=== PATIENT | female | born 1995 | race Two or more races ===

== ENCOUNTER 2016-03-16 10:00 | Observation (INO) | payer MEDICAID | END 2016-03-16 12:10 | disposition home or self-care (01) | DRG 566 | LOC: LDRP 10:00 | PROVIDERS: ADMIT Specialist; ATTEND Specialist | DX: O36.8120 Decreased fetal movements, second trimester, not applicable or unspecified (principal); Z3A.26 26 weeks gestation of pregnancy | CPT/HCPCS: 76818; G0378; 59025; 81002 ==

== ENCOUNTER 2016-04-21 10:00 | Observation (INO) | payer MEDICAID ==
[~2016-04-21] VITALS: Ht 165.1 cm; Wt 93.0 kg
[2016-04-21] MEDS ORDERED: LACTATED RINGER'S 1,000 ML IV ONE (11:11)
[2016-04-21] MEDS ORDERED: LACTATED RINGER'S 1,000 ML IV SCH (11:11)
[2016-04-21] MEDS ORDERED: TERBUTALINE SULFATE 1 MG/ML 1ML VIAL SC ONE (11:15)
[2016-04-21] MEDS ORDERED: PREN-153 OR (13:43)
== END 2016-04-21 12:55 | disposition home or self-care (01) | DRG 566 ==
LOC: LDRP 10:00
PROVIDERS: ADMIT Obstetrics & Gynecology; ATTEND Obstetrics & Gynecology
DX: O99.613 Diseases of the digestive system complicating pregnancy, third trimester (principal); K52.9 Noninfective gastroenteritis and colitis, unspecified; Z3A.31 31 weeks gestation of pregnancy
CPT/HCPCS: 96360; 96361; 96372; G0378; 59025; 81002

== ENCOUNTER 2016-04-27 12:15 | Observation (INO) | payer MEDICAID ==
[~2016-04-27 12:15] MED LIST: PREN-153 OR
== END 2016-04-27 13:07 | disposition home or self-care (01) | DRG 566 ==
LOC: LDRP 12:15
PROVIDERS: ADMIT Specialist; ATTEND Specialist
DX: O26.893 Other specified pregnancy related conditions, third trimester (principal); R19.7 Diarrhea, unspecified; Z3A.32 32 weeks gestation of pregnancy
CPT/HCPCS: 59025; 81002; G0378

== ENCOUNTER 2016-05-01 11:20 | Emergency (ER) | payer MEDICAID ==
[~2016-05-01] VITALS: Ht 165.1 cm; Wt 92.5 kg
[2016-05-01 11:55] LABS: Basophils # (auto) 0 uL; Basophils % (auto) 0.5 % (0.0-2.0); DEFINITIVE VIEW TRANSMISSION; Eosinophils # (auto) 0 uL; Eosinophils % (auto) 0.3 % (0.0-7.0); Hematocrit 32.5 % (36.0-46.0); Hemoglobin 10.9 g/dL (12.2-16.2); Lymphocytes # (auto) 1.3 uL; Lymphocytes % (auto) 17.4 % (10.0-50.0); Mean Corpuscular Hemoglobin 26.9 pg (28.0-32.0); Mean Corpuscular Hgb Conc. 33.6 g/dL (32.0-36.0); Mean Corpuscular Volume 80.2 fL (80.0-100.0); Mean Platelet Volume 9.5 fL (7.4-10.4); Monocytes # (auto) 0.5 uL; Neutrophils # (auto) 5.7 uL; Neutrophils % (auto) 74.8 % (37.0-80.0); Platelet Count (auto) 297 10^3/uL (140-450); Red Cell Distribution Width 13.3 % (11.6-16.0); White Blood Cell 7.6 10^3/uL (4.4-10.8)
[2016-05-01 12:11] LABS: Albumin 2.7 g/dL (3.4-5.0); BUN/Creatinine Ratio 10.1; Bilirubin, Total 0.6 mg/dL (0.2-1.0); Potassium 4.3 mmol/L (3.5-5.1)
[2016-05-01 16:28] VITALS: BP 167/86
[2016-05-01 17:08] LABS: Urine Bilirubin Negative (Negative); Urine Blood Negative /uL (Negative); Urine Color Yellow (Yellow); Urine Glucose Normal (Normal); Urine Ketone 4+ (Negative); Urine Nitrite Negative (Negative); Urine RBC 3 /hpf (0 - 4); Urine Squamous Epithelial Cell FEW /hpf (<5); Urine Urobilinogen Normal (Negative)
== END 2016-05-01 18:20 | disposition home or self-care (01) ==
LOC: ER 11:20
DX: O26.893 Other specified pregnancy related conditions, third trimester (principal); M54.9 Dorsalgia, unspecified; O21.9 Vomiting of pregnancy, unspecified; R10.2 Pelvic and perineal pain; Z3A.33 33 weeks gestation of pregnancy
CPT/HCPCS: 36415; 76815; 80053; 81001; 83690; 85025

== ENCOUNTER 2016-05-30 10:15 | Observation (INO) | payer MEDICAID | END 2016-05-30 11:15 | disposition home or self-care (01) | DRG 566 | LOC: LDRP 10:15 | PROVIDERS: ADMIT Specialist; ATTEND Specialist | DX: O36.8130 Decreased fetal movements, third trimester, not applicable or unspecified (principal); Z3A.36 36 weeks gestation of pregnancy | CPT/HCPCS: 59025; 76818; 81002; G0378 ==

== ENCOUNTER 2016-06-09 07:45 | Inpatient (IN) | payer MEDICAID ==
[~2016-06-09] VITALS: Ht 165.1 cm; Wt 96.6 kg
[2016-06-09] MEDS ORDERED: LACT. RINGERS/OXYTOCIN 20UNITS 1,000 ML IV SCH (08:52)
[2016-06-09] MEDS ORDERED: LACTATED RINGER'S 1,000 ML IV SCH (08:52)
[2016-06-09] MEDS ORDERED: METHYLERGONOVINE MALEATE 0.2 MG/ML AMP IM PRN (09:00)
[2016-06-09] MEDS ORDERED: DERMOPLAST 60ML BOTTLE TOP PRN (09:00)
[2016-06-09] MEDS ORDERED: PHISODERM TOP SOLN 240ML BTL TOP PRN (09:00)
[2016-06-09] MEDS ORDERED: NALBUPHINE HCL 10 MG/1ml INJECTION IV PRN (09:00)
[2016-06-09] MEDS ORDERED: WITCH HAZEL-GLYCERIN PAD TOP PRN (09:00)
[2016-06-09] MEDS ORDERED: LIDOCAINE 2%HCL (LOCAL ANESTH.) INJ 20ML MDV IJ ONE (09:00)
[2016-06-09 09:25] LABS: Basophils # (auto) 0 uL; Basophils % (auto) 0.2 % (0.0-2.0); DEFINITIVE VIEW TRANSMISSION; Eosinophils # (auto) 0 uL; Eosinophils % (auto) 0.4 % (0.0-7.0); Hematocrit 33.9 % (36.0-46.0); Hemoglobin 10.9 g/dL (12.2-16.2); Lymphocytes # (auto) 1.4 uL; Mean Corpuscular Hemoglobin 25.6 pg (28.0-32.0); Mean Corpuscular Hgb Conc. 32.1 g/dL (32.0-36.0); Mean Corpuscular Volume 79.8 fL (80.0-100.0); Mean Platelet Volume 10.7 fL (7.4-10.4); Monocytes # (auto) 0.7 uL; Monocytes % (auto) 8.6 % (0.0-12.0); Neutrophils # (auto) 6.2 uL; Neutrophils % (auto) 73.8 % (37.0-80.0); Platelet Count (auto) 259 10^3/uL (140-450); Red Cell Distribution Width 14.3 % (11.6-16.0); White Blood Cell 8.4 10^3/uL (4.4-10.8)
[2016-06-09 09:32] LABS: Urine Bilirubin Negative (Negative); Urine Color Yellow (Yellow); Urine Glucose Normal (Normal); Urine Ketone Negative (Negative); Urine Nitrite Negative (Negative); Urine RBC 17 /hpf (0 - 4); Urine Squamous Epithelial Cell FEW /hpf (<5); Urine Urobilinogen Normal (Negative); Urine pH 7.5 (5.0-8.0)
[2016-06-09 09:37] LABS: Urine Blood 1+ /uL (Negative)
[2016-06-09 09:50] LABS: Partial Thromboplastin Time 23.8 sec (22.64-33.71)
[2016-06-09 09:53] LABS: INR 0.85 (0.9-1.15); Prothrombin Time 9.2 sec (9.37-12.3)
[2016-06-09 09:55] LABS: Albumin 2.6 g/dL (3.4-5.0); BUN/Creatinine Ratio 12.3; Bilirubin, Total 0.8 mg/dL (0.2-1.0); Calcium 9.2 mg/dL (8.5-10.1); Total Protein 6.9 g/dL (6.4-8.2)
[2016-06-09] MEDS ORDERED: ePHEDrine SULFATE 50 MG/ML AMP IV ONE ×2 (13:45→16:00)
[2016-06-09] MEDS ORDERED: LIDOCAINE HCL 2 %PF INJ 10ML AMP IJ ONE (13:45)
[2016-06-09] MEDS ORDERED: NALOXONE HCL 0.4 MG/ML VIAL IV ONE ×2 (13:45→16:00)
[2016-06-09] MEDS ORDERED: fentaNYL CITRATE 100 MCG/2 ML VL IV ONE ×2 (13:45→16:00)
[2016-06-09] MEDS ORDERED: fentaNYL W ROPIVACAINE 150 ML EPI SCH ×2 (13:45→16:00)
[2016-06-09] MEDS ORDERED: SODIUM CHLORIDE 0.9% 500 ML IV PRN (15:57)
[2016-06-10] MEDS ORDERED: LACT. RINGERS/OXYTOCIN 20UNITS 500 ML IV ONE ×2 (00:52→01:12)
[2016-06-10] MEDS ORDERED: ACETAMINOPHEN 325 MG TAB PO PRN (01:00)
[2016-06-10] MEDS ORDERED: METHYLERGONOVINE MALEATE 0.2 MG/ML AMP IM ONE (01:00)
[2016-06-10] MEDS ORDERED: LACT. RINGERS/OXYTOCIN 20UNITS 1,000 ML IV SCH (01:52)
[2016-06-10 07:43] VITALS: BP 100/55
[2016-06-10] MEDS: IBUPROFEN 600 MG TAB PO PRN ×2 (10:41→17:53)
[2016-06-10 12:30] VITALS: BP 109/62
[2016-06-10 16:00] VITALS: BP 110/69
[2016-06-10 19:30] VITALS: BP 112/66
[2016-06-11] VITALS: BP 105/66
[2016-06-11 04:30] VITALS: BP 111/69
[2016-06-11] MEDS ORDERED: TETANUS-DIPTH-ACEL PERTUSSIS 0.5ML SYRG IM ONE (07:30)
[2016-06-11 08:00] VITALS: BP 115/73
== END 2016-06-11 11:35 | disposition home or self-care (01) | DRG 560 ==
LOC: OBSVTOIN 07:45 → LDRP 07:45
PROVIDERS: ADMIT Specialist; ATTEND Specialist
PROC: 10E0XZZ Delivery of Products of Conception, External Approach (ICD-10-PCS; principal; 2016-06-10)
PROC: 0HQ9XZZ Repair Perineum Skin, External Approach (ICD-10-PCS; 2016-06-10)
PROC: 3E0R3CZ (ICD-10-PCS; 2016-06-10)
PROC: 00HU33Z Insertion of Infusion Device into Spinal Canal, Percutaneous Approach (ICD-10-PCS; 2016-06-10)
PROC: 30233S1 Transfusion of Nonautologous Globulin into Peripheral Vein, Percutaneous Approach (ICD-10-PCS; 2016-06-10)
DX: O42.92 Full-term premature rupture of membranes, unspecified as to length of time between rupture and onset of labor (principal); O70.0 First degree perineal laceration during delivery; Z37.0 Single live birth; Z3A.38 38 weeks gestation of pregnancy; Z23 Encounter for immunization
CPT/HCPCS: 36415; 51702; 59025; 59409; 62282; 80053; 80307; 81001; 81002; 85025; 85610; 85730; 86850; 86900; 86901; 90384; 90715; 94762; 96361; 96365; 96366; 96372; J2590; J3010

== ENCOUNTER 2018-03-07 10:40 | Observation (INO) | payer MEDICAID | END 2018-03-07 11:15 | disposition home or self-care (01) | DRG 565 | LOC: LDRP 10:40 | PROVIDERS: ADMIT Obstetrics & Gynecology; ATTEND Obstetrics & Gynecology | DX: O47.03 False labor before 37 completed weeks of gestation, third trimester (principal); O26.893 Other specified pregnancy related conditions, third trimester; R51 Headache; Z3A.30 30 weeks gestation of pregnancy | CPT/HCPCS: 59025; 81002; G0378 ==

== ENCOUNTER 2018-03-13 16:35 | Observation (INO) | payer MEDICAID | END 2018-03-13 17:30 | disposition home or self-care (01) | DRG 566 | LOC: LDRP 16:35 | PROVIDERS: ADMIT Obstetrics & Gynecology; ATTEND Obstetrics & Gynecology | DX: O42.913 Preterm premature rupture of membranes, unspecified as to length of time between rupture and onset of labor, third trimester (principal); O62.9 Abnormality of forces of labor, unspecified; Z3A.31 31 weeks gestation of pregnancy | CPT/HCPCS: 59025; 81002; G0378 ==

== ENCOUNTER 2018-03-16 14:40 | Observation (INO) | payer MEDICAID | END 2018-03-16 15:20 | disposition home or self-care (01) | DRG 563 | LOC: LDRP 14:40 | PROVIDERS: ADMIT Specialist; ATTEND Specialist | DX: O60.03 Preterm labor without delivery, third trimester (principal); Z3A.31 31 weeks gestation of pregnancy | CPT/HCPCS: 59025; 81002; G0378 ==

== ENCOUNTER 2018-03-25 10:50 | Observation (INO) | payer MEDICAID ==
[2018-03-25] MEDS ORDERED: NIF10C GT (11:46)
== END 2018-03-25 11:55 | disposition home or self-care (01) | DRG 563 ==
LOC: LDRP 10:50
PROVIDERS: ADMIT Obstetrics & Gynecology; ATTEND Obstetrics & Gynecology
DX: O60.03 Preterm labor without delivery, third trimester (principal); Z3A.33 33 weeks gestation of pregnancy
CPT/HCPCS: 59025; 81002; G0378

== ENCOUNTER 2018-04-03 18:00 | Observation (INO) | payer MEDICAID ==
[~2018-04-03] VITALS: Ht 165.1 cm; Wt 99.3 kg
[~2018-04-03 18:00] MED LIST changes: +NIF10C GT
[2018-04-03] MEDS ORDERED: LACTATED RINGER'S 1,000 ML IV SCH (18:39)
[2018-04-03] MEDS ORDERED: LACTATED RINGER'S 1,000 ML IV ONE (18:39)
[2018-04-03] MEDS ORDERED: TERBUTALINE SULFATE 1 MG/ML 1ML VIAL SC ONE (18:40)
[2018-04-03] MEDS: TERBUTALINE SULFATE 1 MG/ML 1ML VIAL SC SCH ×2 (19:05→19:25)
[2018-04-03 19:08] LABS: Urine Bacteria FEW /hpf (None Seen); Urine Blood Negative /uL (Negative); Urine Specific Gravity 1.015 (1.001-1.035); Urine WBC 14 /hpf (0 - 5)
[2018-04-03 19:16] LABS: Alcohol, Urine < 3.0 mg/dL (0-5); Amphetamine Screen, Urine NEGATIVE (NEGATIVE); Barbiturate Scree,Urine NEGATIVE (NEGATIVE); Benzodiazephine Screen, Urine NEGATIVE (NEGATIVE); Cannabinoid Screen, Urine NEGATIVE (NEGATIVE); Cocaine Screen, Urine NEGATIVE (NEGATIVE); Opiate Scree,Urine NEGATIVE (NEGATIVE); Phencyclidine Screen, Urine NEGATIVE (NEGATIVE)
== END 2018-04-03 20:13 | disposition home or self-care (01) | DRG 566 ==
LOC: LDRP 18:00
PROVIDERS: ADMIT Specialist; ATTEND Specialist
DX: O62.9 Abnormality of forces of labor, unspecified (principal); O47.9 False labor, unspecified; Z3A.34 34 weeks gestation of pregnancy
CPT/HCPCS: 59025; 80307; 81001; 81002; 96372; G0378; J3105; 96374

== ENCOUNTER 2018-04-17 03:24 | Observation (INO) | payer MEDICAID ==
[~2018-04-17] VITALS: Ht 165.1 cm; Wt 99.8 kg
[2018-04-17] MEDS ORDERED: LACTATED RINGER'S 1,000 ML IV ONE (04:11)
== END 2018-04-17 05:20 | disposition home or self-care (01) | DRG 566 ==
LOC: LDRP 03:24
PROVIDERS: ADMIT Specialist; ATTEND Specialist
DX: O21.2 Late vomiting of pregnancy (principal); O62.9 Abnormality of forces of labor, unspecified; Z3A.36 36 weeks gestation of pregnancy
CPT/HCPCS: 59025; 81002; G0378; 96365; 96366

== ENCOUNTER 2018-04-21 09:19 | Observation (INO) | payer MEDICAID | END 2018-04-21 10:15 | disposition home or self-care (01) | DRG 565 | LOC: LDRP 09:19 | PROVIDERS: ADMIT Specialist; ATTEND Specialist | DX: O47.9 False labor, unspecified (principal); O42.92 Full-term premature rupture of membranes, unspecified as to length of time between rupture and onset of labor; Z3A.37 37 weeks gestation of pregnancy | CPT/HCPCS: 59025; 81002; G0378 ==

== ENCOUNTER 2018-04-21 14:50 | Inpatient (IN) | payer MEDICAID | END 2018-04-23 12:10 | disposition home or self-care (01) | LOC: LDRP 14:50 → CENTRAL 04-22 17:31 → LDRP 23:23 | PROC: 10E0XZZ Delivery of Products of Conception, External Approach (ICD-10-PCS; principal; ~2018-04-21) | DX: O80 Encounter for full-term uncomplicated delivery (principal); Z37.0 Single live birth; Z3A.37 37 weeks gestation of pregnancy ==

== ENCOUNTER 2021-11-04 16:36 | Observation (INO) | payer MEDICAID ==
[~2021-11-04] VITALS: Ht 165.1 cm; Wt 93.4 kg
[~2021-11-04 16:36] MED LIST changes: -NIF10C GT; -PREN-153 OR; +PREN1TAB71 OR
[2021-11-04] MEDS ORDERED: NITR-87 PO (17:27)
[2021-11-04] MEDS ORDERED: NITROFURANTOIN 100 mg CAP PO SCH (22:00)
== END 2021-11-04 17:48 | disposition home or self-care (01) ==
LOC: LDRP 16:36 → UNDOADMOB 16:36 → LDRP 16:39 → UNDODISOB 17:48
PROVIDERS: ADMIT Obstetrics & Gynecology; ATTEND Obstetrics & Gynecology
DX: O26.892 Other specified pregnancy related conditions, second trimester (principal); R10.9 Unspecified abdominal pain; O34.62 Maternal care for abnormality of vagina, second trimester; N89.8 Other specified noninflammatory disorders of vagina; Z3A.21 21 weeks gestation of pregnancy
CPT/HCPCS: 59025; 81002; 94760; G0378

== ENCOUNTER 2021-12-08 11:52 | Observation (INO) | payer MEDICAID ==
[~2021-12-08 11:52] MED LIST changes: +NITR-87 PO
== END 2021-12-08 13:55 | disposition home or self-care (01) ==
LOC: LDRP 11:52 → UNDOADMOB 11:52 → LDRP 12:09
PROVIDERS: ADMIT Obstetrics & Gynecology Obstetrics; ATTEND Obstetrics & Gynecology Obstetrics
DX: O42.912 Preterm premature rupture of membranes, unspecified as to length of time between rupture and onset of labor, second trimester (principal); O60.02 Preterm labor without delivery, second trimester; Z3A.26 26 weeks gestation of pregnancy
CPT/HCPCS: 59025; 81002; 84112; 94760; G0378; Q0114

== ENCOUNTER 2021-12-31 11:25 | Observation (INO) | payer MEDICAID ==
[2021-12-31] MEDS ORDERED: LACTATED RINGER'S 1,000 ML IV ONE (11:45)
[2021-12-31 12:32] LABS: Urine Bacteria NONE SEEN /hpf (None Seen); Urine Blood Negative /uL (Negative); Urine Mucus FEW (None Seen); Urine WBC 135 /hpf (0 - 5)
[2022-01-11] MEDS ORDERED: NIF10C PO (12:12)
== END 2021-12-31 13:41 | disposition home or self-care (01) ==
LOC: UNDOADMOB 11:25 → LDRP 11:25
PROVIDERS: ADMIT Obstetrics & Gynecology; ATTEND Obstetrics & Gynecology
DX: O26.893 Other specified pregnancy related conditions, third trimester (principal); R10.9 Unspecified abdominal pain; N89.8 Other specified noninflammatory disorders of vagina; R10.2 Pelvic and perineal pain; Z3A.29 29 weeks gestation of pregnancy; Z79.899 Other long term (current) drug therapy
CPT/HCPCS: 59025; 76815; 81001; 81002; 94760; G0378; Q0114

== ENCOUNTER 2022-01-08 14:50 | Observation (INO) | payer MEDICAID ==
[~2022-01-08] VITALS: Ht 165.1 cm; Wt 95.3 kg
[2022-01-08] MEDS ORDERED: TERBUTALINE SULFATE 1 MG/ML 1ML VIAL SC SCH (16:00)
[2022-01-11] MEDS ORDERED: NIF10C PO (12:12)
== END 2022-01-08 17:06 | disposition home or self-care (01) ==
LOC: LDRP 14:50 → UNDOADMOB 14:50 → LDRP 15:01
PROVIDERS: ADMIT Obstetrics & Gynecology; ATTEND Obstetrics & Gynecology
DX: O60.03 Preterm labor without delivery, third trimester (principal); Z3A.31 31 weeks gestation of pregnancy
CPT/HCPCS: 59025; 81002; 94760; 96372; G0378; J3105

== ENCOUNTER 2022-01-12 08:15 | Observation (INO) | payer MEDICAID ==
[~2022-01-12] VITALS: Ht 165.1 cm; Wt 98.0 kg
[~2022-01-12 08:15] MED LIST changes: +NIF10C PO; -NITR-87 PO
[2022-01-12] MEDS ORDERED: BETAMETHASONE ACET (30mg/5ml) 5ml Vial 6mg/ml IM ONE (12:30)
== END 2022-01-12 13:56 | disposition home or self-care (01) ==
LOC: LDRP 12:03 → UNDOADMOB 12:03 → LDRP 12:10 → UNDODISOB 13:56
PROVIDERS: ADMIT Obstetrics & Gynecology Obstetrics; ATTEND Obstetrics & Gynecology Obstetrics
DX: O60.03 Preterm labor without delivery, third trimester (principal); Z3A.31 31 weeks gestation of pregnancy
CPT/HCPCS: 59025; 81002; 94760; 96372; G0378

== ENCOUNTER 2022-01-19 09:27 | Observation (INO) | payer MEDICAID ==
[2022-01-19 10:40] LABS: Basophils # (auto) 0 10 ^3/uL (0-0.2); Basophils % (auto) 0.2 % (0.0-2.0); Eosinophils % (auto) 0.6 % (0.0-7.0); Hemoglobin 10.7 g/dL (12.2-16.2); White Blood Cell 8.9 10^3/uL (4.4-10.8)
[2022-01-19 10:42] LABS: Eosinophils # (auto) 0 10 ^3/uL (0-0.8); Lymphocytes # (auto) 1.5 10 ^3/uL (0.4-5.4); Lymphocytes % (auto) 16.8 % (10.0-50.0); Mean Corpuscular Hemoglobin 25.3 pg (28.0-32.0); Mean Corpuscular Hgb Conc. 32.5 g/dL (32.0-36.0); Mean Corpuscular Volume 77.8 fL (80.0-100.0); Monocytes # (auto) 0.9 10 ^3/uL (0-1.3); Monocytes % (auto) 9.6 % (0.0-12.0); Neutrophils # (auto) 6.5 10 ^3/uL (1.6-8.6); Neutrophils % (auto) 72.8 % (37.0-80.0); Nucleated Red Blood Cells % 0.1 %; Red Blood Cells 4.24 10^6/uL (4.0-5.20)
[2022-01-19 11:14] LABS: Protein, Urine 7.9 mg/dL (0.0-11.9)
[2022-01-19 11:14] LABS: INR 0.87 (0.9-1.15); Partial Thromboplastin Time 23.1 sec (24.6-33.4)
[2022-01-19 11:26] LABS: Potassium 3.8 mmol/L (3.5-5.1)
[2022-01-19 11:27] LABS: Albumin 2.6 g/dL (3.4-5.0); BUN/Creatinine Ratio 13.1; Bilirubin, Total 0.8 mg/dL (0.2-1.0); Calcium 8.8 mg/dL (8.5-10.1); Total Protein 6.2 g/dL (6.4-8.2)
[2022-01-19 15:35] LABS: Urine Blood Negative /uL (Negative); Urine Specific Gravity 1.007 (1.001-1.035)
== END 2022-01-19 10:42 | disposition home or self-care (01) ==
LOC: UNDOADMOB 09:29 → LDRP 09:29
PROVIDERS: ADMIT Obstetrics & Gynecology Obstetrics; ATTEND Obstetrics & Gynecology Obstetrics
DX: O47.03 False labor before 37 completed weeks of gestation, third trimester (principal); O26.893 Other specified pregnancy related conditions, third trimester; R03.0 Elevated blood-pressure reading, without diagnosis of hypertension; Z3A.32 32 weeks gestation of pregnancy
CPT/HCPCS: 36415; 59025; 80053; 81001; 81002; 82570; 84156; 84550; 85025; 85362; 85379; 85610; 85730; 94760; G0378

== ENCOUNTER 2022-01-23 13:27 | Observation (INO) | payer MEDICAID ==
[2022-01-23] MEDS ORDERED: TERBUTALINE SULFATE 1 MG/ML 1ML VIAL SC SCH (14:15)
[2022-01-23 14:16] LABS: Urine Bacteria FEW /hpf (None Seen); Urine Blood Negative /uL (Negative); Urine Specific Gravity 1.013 (1.001-1.035); Urine WBC 6 /hpf (0 - 5)
== END 2022-01-23 15:03 | disposition home or self-care (01) ==
LOC: LDRP 13:27
PROVIDERS: ADMIT Obstetrics & Gynecology; ATTEND Obstetrics & Gynecology
DX: O23.43 Unspecified infection of urinary tract in pregnancy, third trimester (principal); O60.03 Preterm labor without delivery, third trimester; O62.9 Abnormality of forces of labor, unspecified; O99.891 Other specified diseases and conditions complicating pregnancy; M54.9 Dorsalgia, unspecified; R10.30 Lower abdominal pain, unspecified; Z3A.33 33 weeks gestation of pregnancy; Z79.899 Other long term (current) drug therapy
CPT/HCPCS: 59025; 81001; 81002; 94760; 96372; G0378; J3105

== ENCOUNTER 2022-01-26 08:02 | Observation (INO) | payer MEDICAID | END 2022-01-26 08:44 | disposition home or self-care (01) | LOC: UNDOADMOB 08:02 → LDRP 08:02 → UNDODISOB 08:44 | PROVIDERS: ADMIT Obstetrics & Gynecology Obstetrics; ATTEND Obstetrics & Gynecology Obstetrics | DX: O47.03 False labor before 37 completed weeks of gestation, third trimester (principal); Z3A.33 33 weeks gestation of pregnancy | CPT/HCPCS: 59025; 81002; 94760; G0378 ==

== ENCOUNTER 2022-02-02 08:50 | Observation (INO) | payer MEDICAID | END 2022-02-02 09:48 | disposition home or self-care (01) | LOC: LDRP 08:50 | PROVIDERS: ADMIT Obstetrics & Gynecology; ATTEND Obstetrics & Gynecology | DX: O60.03 Preterm labor without delivery, third trimester (principal); Z3A.34 34 weeks gestation of pregnancy | CPT/HCPCS: 59025; 81002; 94760; G0378 ==

== ENCOUNTER 2022-02-03 16:22 | Observation (INO) | payer MEDICAID ==
[~2022-02-03] VITALS: Ht 65 cm; Wt 95.3 kg
[2022-02-03] MEDS: TERBUTALINE SULFATE 1 MG/ML 1ML VIAL SC SCH ×3 (17:30→18:23)
[2022-02-03] MEDS ORDERED: NIFEdipine 10 MG CAP PO ONE (19:30)
== END 2022-02-03 19:11 | disposition home or self-care (01) ==
LOC: LDRP 16:22 → UNDOADMOB 16:22 → LDRP 16:40
PROVIDERS: ADMIT Obstetrics & Gynecology; ATTEND Obstetrics & Gynecology
DX: O60.03 Preterm labor without delivery, third trimester (principal); O62.9 Abnormality of forces of labor, unspecified; O46.93 Antepartum hemorrhage, unspecified, third trimester; Z3A.34 34 weeks gestation of pregnancy
CPT/HCPCS: 59025; 81002; 96372; G0378; J3105

== ENCOUNTER 2022-02-04 10:29 | Observation (INO) | payer MEDICAID | END 2022-02-04 12:41 | disposition home or self-care (01) | LOC: UNDOADMOB 10:29 → LDRP 10:29 | PROVIDERS: ADMIT Obstetrics & Gynecology; ATTEND Obstetrics & Gynecology | DX: O62.9 Abnormality of forces of labor, unspecified (principal); Z3A.34 34 weeks gestation of pregnancy | CPT/HCPCS: 59025; 76815; 81002; 84112; 94760; G0378; Q0114 ==

== ENCOUNTER 2022-02-07 11:45 | Observation (INO) | payer MEDICAID | END 2022-02-07 13:00 | disposition home or self-care (01) | LOC: LDRP 11:45 | PROVIDERS: ADMIT Obstetrics & Gynecology; ATTEND Obstetrics & Gynecology | DX: O60.03 Preterm labor without delivery, third trimester (principal); Z3A.35 35 weeks gestation of pregnancy | CPT/HCPCS: 59025; 81002; 94760; G0378 ==

== ENCOUNTER 2022-02-09 11:12 | Observation (INO) | payer MEDICAID | END 2022-02-09 12:30 | disposition home or self-care (01) | LOC: LDRP 11:12 | PROVIDERS: ADMIT Obstetrics & Gynecology; ATTEND Obstetrics & Gynecology | DX: O60.03 Preterm labor without delivery, third trimester (principal); O34.63 Maternal care for abnormality of vagina, third trimester; N89.8 Other specified noninflammatory disorders of vagina; Z3A.35 35 weeks gestation of pregnancy | CPT/HCPCS: 59025; 81002; G0378 ==

== ENCOUNTER 2022-02-13 18:42 | Observation (INO) | payer MEDICAID ==
[~2022-02-13] VITALS: Ht 165.1 cm; Wt 101.6 kg
[2022-02-13] MEDS ORDERED: TERBUTALINE SULFATE 1 MG/ML 1ML VIAL SC ONE (19:47)
[2022-02-13] MEDS ORDERED: TERBUTALINE SULFATE 1 MG/ML 1ML VIAL SC SCH (20:00)
== END 2022-02-13 21:40 | disposition home or self-care (01) ==
LOC: LDRP 18:42
PROVIDERS: ADMIT Obstetrics & Gynecology; ATTEND Obstetrics & Gynecology
DX: O62.9 Abnormality of forces of labor, unspecified (principal); Z3A.36 36 weeks gestation of pregnancy
CPT/HCPCS: 59025; 76815; 81002; 96372; G0378; J3105

== ENCOUNTER 2022-02-22 16:24 | Observation (INO) | payer MEDICAID ==
[~2022-02-22] VITALS: Ht 165.1 cm; Wt 101.6 kg
== END 2022-02-22 17:43 | disposition home or self-care (01) ==
LOC: LDRP 16:24
PROVIDERS: ADMIT Obstetrics & Gynecology; ATTEND Obstetrics & Gynecology
DX: O62.9 Abnormality of forces of labor, unspecified (principal); O26.893 Other specified pregnancy related conditions, third trimester; R10.2 Pelvic and perineal pain; N89.8 Other specified noninflammatory disorders of vagina; Z3A.37 37 weeks gestation of pregnancy
CPT/HCPCS: 59025; 81002; G0378

== ENCOUNTER 2022-02-26 12:53 | Inpatient (IN) | payer MEDICAID ==
[~2022-02-26] VITALS: Ht 165.1 cm; Wt 101.6 kg
[~2022-02-26 12:53] MED LIST changes: -NIF10C PO
[2022-02-26] MEDS ORDERED: PROMETHAZINE HCL 25 MG/ML 1ML IV PRN (14:45)
[2022-02-26] MEDS ORDERED: PROMETHAZINE HCL 25 MG/ML 1ML IM PRN (14:45)
[2022-02-26] MEDS ORDERED: LACTATED RINGER'S 1,000 ML IV SCH (14:45)
[2022-02-26] MEDS ORDERED: DERMOPLAST 60ML BOTTLE TOP PRN (14:45)
[2022-02-26] MEDS ORDERED: PHISODERM TOP SOLN 240ML BTL TOP PRN (14:45)
[2022-02-26] MEDS ORDERED: BUTORPHANOL TARTRATE 2 MG/1 ML VIAL IV PRN ×2 (14:45)
[2022-02-26] MEDS ORDERED: WITCH HAZEL-GLYCERIN PAD TOP PRN (14:45)
[2022-02-26] MEDS ORDERED: RHO (D) IMMUNE GLOBULIN 300 MCG INJ IM ONE (14:45)
[2022-02-26] MEDS ORDERED: LIDOCAINE 2%HCL (LOCAL ANESTH.) INJ 20ML MDV IJ PRN (14:45)
[2022-02-26] MEDS ORDERED: TETANUS-DIPTH-ACEL PERTUSSIS 0.5ML SYR Tdap IM ONE (15:00)
[2022-02-26 15:58] LABS: Eosinophils # (auto) 0 10 ^3/uL (0-0.8); Nucleated Red Blood Cells % 0.1 %; Red Cell Distribution Width 14.9 % (11.8-14.3)
[2022-02-26 16:00] LABS: Basophils # (auto) 0.1 10 ^3/uL (0-0.2); Basophils % (auto) 0.6 % (0.0-2.0); Eosinophils % (auto) 0.5 % (0.0-7.0); Hematocrit 33.2 % (36.0-46.0); Lymphocytes # (auto) 1.6 10 ^3/uL (0.4-5.4); Lymphocytes % (auto) 17.9 % (10.0-50.0); Mean Corpuscular Hemoglobin 24.9 pg (28.0-32.0); Mean Corpuscular Hgb Conc. 33.2 g/dL (32.0-36.0); Mean Corpuscular Volume 74.9 fL (80.0-100.0); Monocytes # (auto) 0.6 10 ^3/uL (0-1.3); Monocytes % (auto) 7.3 % (0.0-12.0); Neutrophils # (auto) 6.4 10 ^3/uL (1.6-8.6); Neutrophils % (auto) 73.7 % (37.0-80.0); Red Blood Cells 4.43 10^6/uL (4.0-5.20); White Blood Cell 8.7 10^3/uL (4.4-10.8)
[2022-02-26 16:19] LABS: Albumin 2.7 g/dL (3.4-5.0); BUN/Creatinine Ratio 12.5; Calcium 9.4 mg/dL (8.5-10.1)
[2022-02-26 16:21] LABS: INR 0.87 (0.9-1.15)
[2022-02-26 16:22] LABS: Bilirubin, Total 0.6 mg/dL (0.2-1.0); Total Protein 6.8 g/dL (6.4-8.2)
[2022-02-26 16:53] LABS: Urine Bacteria MOD /hpf (None Seen); Urine Blood 1+ /uL (Negative); Urine Mucus FEW (None Seen); Urine Specific Gravity 1.023 (1.001-1.035); Urine WBC 370 /hpf (0 - 5); Urine WBC Clumps PRESENT /hpf (None Seen)
[2022-02-26 17:07] LABS: Alcohol, Urine < 3.0 mg/dL (0-10); Amphetamine Screen, Urine NEGATIVE (NEGATIVE); Barbiturate Scree,Urine NEGATIVE (NEGATIVE); Benzodiazephine Screen, Urine NEGATIVE (NEGATIVE); Cannabinoid Screen, Urine NEGATIVE (NEGATIVE); Cocaine Screen, Urine NEGATIVE (NEGATIVE); Opiate Scree,Urine NEGATIVE (NEGATIVE); Phencyclidine Screen, Urine NEGATIVE (NEGATIVE)
[2022-02-26] MEDS ORDERED: TERBUTALINE SULFATE 1 MG/ML 1ML VIAL SC PRN (18:30)
[2022-02-26] MEDS ORDERED: LACT. RINGERS/OXYTOCIN 20UNITS 1,000 ML IV SCH (18:30)
[2022-02-26] MEDS ORDERED: LACT. RINGERS/OXYTOCIN 20UNITS 500 ML IV ONE ×2 (18:30→19:00)
[2022-02-27 03:00] VITALS: BP 98/55
[2022-02-27 07:15] VITALS: BP 106/69
[2022-02-27 11:15] VITALS: BP 109/67
[2022-02-27] MEDS: IBUPROFEN 800 MG TAB PO PRN ×2 (12:11→22:10)
[2022-02-27 15:15] VITALS: BP 121/69
[2022-02-27 19:00] VITALS: BP 103/58
[2022-02-27] MEDS: ACETAMINOPHEN 325 MG TAB PO PRN (19:35)
[2022-02-27] MEDS ORDERED: DOCUSATE SOD 100 MG CAP PO SCH (22:00)
[2022-02-27 23:00] VITALS: BP 105/61
[2022-02-28 03:00] VITALS: BP 102/61
[2022-02-28] MEDS: ACETAMINOPHEN 325 MG TAB PO PRN (05:31)
[2022-02-28 10:00] VITALS: BP 123/80
[2022-03-04 07:07] LABS: RPR Non Reactive (Non Reactive)
== END 2022-02-28 11:01 | disposition home or self-care (01) | DRG 560 ==
LOC: UNDOADMOB 12:53 → LDRP 12:53 → OBSVTOIN 14:15 → LDRP 15:15
PROVIDERS: ADMIT Obstetrics & Gynecology; ATTEND Obstetrics & Gynecology
PROC: 10E0XZZ Delivery of Products of Conception, External Approach (ICD-10-PCS; principal; 2022-02-27)
DX: O60.14X0 Preterm labor third trimester with preterm delivery third trimester, not applicable or unspecified (principal); Z37.0 Single live birth; O62.2 Other uterine inertia; Z20.822 Contact with and (suspected) exposure to COVID-19; Z3A.38 38 weeks gestation of pregnancy
CPT/HCPCS: 36415; 59025; 59409; 80053; 80307; 81001; 81002; 85025; 85610; 85730; 86592; 86850; 86900; 86901; 87426; 90384; 90471; 90715; 94760; 94762; 96360; 96361; 96365; 96366; 96372; 96374; G0378; J2590

== ENCOUNTER 2022-07-17 06:20 | Day surgery (SDC) | payer MEDICAID ==
[2022-07-14 11:25] LABS: Eosinophils # (auto) 0.1 10 ^3/uL (0-0.8); Hemoglobin 13.3 g/dL (12.2-16.2); Mean Corpuscular Hemoglobin 25.8 pg (28.0-32.0); Mean Corpuscular Hgb Conc. 32.9 g/dL (32.0-36.0); Mean Corpuscular Volume 78.5 fL (80.0-100.0); Neutrophils # (auto) 4.2 10 ^3/uL (1.6-8.6); White Blood Cell 7.1 10^3/uL (4.4-10.8)
[2022-07-14 11:26] LABS: Basophils # (auto) 0 10 ^3/uL (0-0.2); Basophils % (auto) 0.6 % (0.0-2.0); Hematocrit 40.5 % (36.0-46.0); Lymphocytes # (auto) 2.2 10 ^3/uL (0.4-5.4); Lymphocytes % (auto) 30.4 % (10.0-50.0); Monocytes # (auto) 0.6 10 ^3/uL (0-1.3); Monocytes % (auto) 8.9 % (0.0-12.0); Neutrophils % (auto) 59.1 % (37.0-80.0); Red Blood Cells 5.16 10^6/uL (4.0-5.20); Red Cell Distribution Width 14.7 % (11.8-14.3)
[2022-07-14 11:29] LABS: Urine Bacteria NONE SEEN /hpf (None Seen); Urine Blood Negative /uL (Negative); Urine Specific Gravity 1.006 (1.001-1.035); Urine WBC 2 /hpf (0 - 5)
[2022-07-14 11:40] LABS: INR 0.96 (0.9-1.15); Partial Thromboplastin Time 26.7 sec (24.6-33.4)
[2022-07-14 11:55] LABS: Albumin 3.6 g/dL (3.4-5.0); BUN/Creatinine Ratio 14.3 (10.0-20.0); Calcium 9.3 mg/dL (8.5-10.1)
[2022-07-14 11:57] LABS: Bilirubin, Total 0.9 mg/dL (0.2-1.0); Total Protein 7.5 g/dL (6.4-8.2)
[~2022-07-17] VITALS: Ht 165.1 cm; Wt 97.5 kg
[~2022-07-17 06:20] MED LIST changes: -PREN1TAB71 OR; +ceFAZolin 1GM/50ML 100 ML IV ONE
[2022-07-17] MEDS ORDERED: LIDOCAINE W/ EPINEPHRINE 1% 20ML VIAL ONE (06:23)
[2022-07-17] MEDS ORDERED: BUPIVACAINE HCL 0.25% P/F 10 ML VIAL ONE (06:24)
[2022-07-17] MEDS ORDERED: SUCCINYLCHOLINE CHLORIDE 20 MG/ML 10ML VIAL IV ONE (06:53)
[2022-07-17] MEDS ORDERED: ROCURONIUM 10MG/ML 10ML VIAL IV ONE (06:53)
[2022-07-17] MEDS ORDERED: DexAMETHasone SOD PHOS 10MG/1ML VIAL INJ ONE (07:08)
[2022-07-17] MEDS ORDERED: NEOSTIGMINE 1 MG/ML INJ (10mg/10ML VIAL) ONE (07:08)
[2022-07-17] MEDS ORDERED: fentaNYL CITRATE 100 MCG/2 ML VL ONE (07:08)
[2022-07-17] MEDS ORDERED: MEPERIDINE HCL (25 MG/ML) 1ML VIAL ONE ×2 (07:08→07:09)
[2022-07-17] MEDS ORDERED: GLYCOPYRROLATE 0.2 MG/ML 1ML VIAL ONE (07:08)
[2022-07-17] MEDS ORDERED: ONDANSETRON HCL 4 MG/2 ML VIAL ONE (07:08)
[2022-07-17] MEDS ORDERED: SODIUM CHLORIDE LOCK 10 ML ONE (07:08)
[2022-07-17] MEDS ORDERED: MIDAZOLAM HCL 2MG/2ML 2ml VIAL (1mg/ml) ONE (07:08)
[2022-07-17] MEDS ORDERED: MORPHINE SULFATE INJ 2 MG/ml SYRG IV PRN (07:15)
[2022-07-17] MEDS ORDERED: METOCLOPRAMIDE HCL 5MG/ml INJ 2ml VIAL IV PRN (07:15)
[2022-07-17] MEDS ORDERED: HYDROmorphone HCL 2 MG/ML VL/or syr IV PRN ×2 (07:15)
[2022-07-17] MEDS ORDERED: LACTATED RINGER'S 1,000 ML IV SCH (08:00)
[2022-07-17] MEDS ORDERED: ONDANSETRON HCL 4 MG/2 ML VIAL IV PRN (08:00)
[2022-07-17] MEDS ORDERED: HYDR-4902 PO (08:07)
[2022-07-17] MEDS ORDERED: ZOFR4T PO (08:07)
[2022-07-17] MEDS ORDERED: HYDROmorphone HCL 2 MG/ML VL/or syr IV ONE (08:55)
[2022-07-17 09:15] VITALS: BP 121/73
== END 2022-07-17 09:20 | disposition home or self-care (01) ==
LOC: SUR 06:20
PROVIDERS: ATTEND Obstetrics & Gynecology
DX: Z30.2 Encounter for sterilization (principal); E66.01 Morbid (severe) obesity due to excess calories
CPT/HCPCS: 36415; 58671; 80053; 81001; 84702; 85025; 85610; 85730; 86850; 86900; 86901; J0330; J0690; J1100; J1170; J2175; J2250; J2405; J3010; J3490

== ENCOUNTER 2022-12-17 15:58 | Emergency (ER) | payer MEDICAID ==
[~2022-12-17] VITALS: Ht 165.1 cm; Wt 96.7 kg
[~2022-12-17 15:58] MED LIST changes: +HYDR-4902 PO; +ZOFR4T PO; -ceFAZolin 1GM/50ML 100 ML IV ONE
[2022-12-17] MEDS ORDERED: AZITTAB PO (22:42)
[2022-12-17] MEDS ORDERED: DEX4T PO (22:42)
[2022-12-17] MEDS ORDERED: IBUP1TAB5 PO (22:42)
[2022-12-17] MEDS ORDERED: ALBUAER3 IN (22:42)
[2022-12-17] MEDS ORDERED: BENZ200C64 PO (22:42)
[2022-12-17 23:40] VITALS: PULSE 99; RESP 18; O2SAT 97
[2022-12-18] VITALS: BP 107/71; PULSE 99; RESP 18; TEMP 98.6; O2SAT 97
== END 2022-12-17 23:35 | disposition home or self-care (01) ==
LOC: ER 15:58
DX: U07.1 COVID-19 (principal); J20.9 Acute bronchitis, unspecified; H92.03 Otalgia, bilateral
CPT/HCPCS: 36415; 71045